=== PATIENT | female | born 1995 | race Caucasian/White ===

== ENCOUNTER 2018-02-12 06:06 | Emergency (ER) | payer MEDICAID ==
[~2018-02-12] VITALS: Ht 157.5 cm; Wt 67.6 kg
[2018-02-12 06:17] VITALS: BP 130/88; Ht 157.5 cm; Wt 67.6 kg
== END 2018-02-12 07:12 | disposition home or self-care (01) ==
LOC: ED 06:06
DX: G56.02 Carpal tunnel syndrome, left upper limb (principal); J45.909 Unspecified asthma, uncomplicated